=== PATIENT | male | born 1945 | race Caucasian/White ===

== ENCOUNTER 2018-05-11 09:54 | Emergency (ER) | payer MEDICARE, OTHER ==
[~2018-05-11] VITALS: Ht 190.5 cm; Wt 96.7 kg
[2018-05-11 10:10] VITALS: BP 157/71; PULSE 91; RESP 18; TEMP 98.3; O2SAT 96
[2018-05-11] MEDS ORDERED: HYDR12.57 PO (10:26)
[2018-05-11] MEDS ORDERED: METF500T PO (10:26)
[2018-05-11] MEDS ORDERED: ENAL20TA PO (10:26)
[2018-05-11] MEDS ORDERED: VITA10002 PO (10:26)
[2018-05-11] MEDS ORDERED: MILKPOW (10:26)
[2018-05-11 10:58] LABS: AUTOMATED NEUTROPHIL # 4.9 TH/MM3 (1.8-7.7); BASOPHIL % 0.4 % (0.0-2.0); EOSINOPHIL % 0.3 % (0.0-4.0); HEMATOCRIT 37.3 % (39.0-51.0); HEMOGLOBIN 12.7 GM/DL (13.0-17.0); LYMPH % 16.5 % (9.0-44.0); LYMPHOCYTE # 1.1 TH/MM3 (1.0-4.8); MEAN CELL VOLUME 101.2 FL (80.0-100.0); MEAN CORPUSCULAR HEMOGLOBIN 34.5 PG (27.0-34.0); MEAN CORPUSCULAR HGB CONC 34.1 % (32.0-36.0); MEAN PLATELET VOLUME 7.2 FL (7.0-11.0); MONO % 10.9 % (0.0-8.0); MONOCYTE # 0.7 TH/MM3 (0-0.9); NEUT % 71.9 % (16.0-70.0); PLATELET COUNT 215 TH/MM3 (150-450); RED BLOOD COUNT 3.69 MIL/MM3 (4.50-5.90); RED CELL DISTRIBUTION WIDTH 11.6 % (11.6-17.2); WHITE BLOOD COUNT 6.7 TH/MM3 (4.0-11.0)
[2018-05-11 11:28] LABS: ALBUMIN 3.6 GM/DL (3.4-5.0); ALKALINE PHOSPHATASE 39 U/L (45-117); ALT (GPT) 22 U/L (12-78); AST (GOT) 17 U/L (15-37); BICARBONATE 26.7 MEQ/L (21.0-32.0); BLOOD UREA NITROGEN 16 MG/DL (7-18); CALCIUM 8.8 MG/DL (8.5-10.1); CHLORIDE 87 MEQ/L (98-107); CREATININE 0.99 MG/DL (0.60-1.30); GLOMERULAR FILTRATION RATE 75 ML/MIN (>89); GLUCOSE,RANDOM 124 MG/DL (74-106); TOTAL BILIRUBIN ADULT 1.4 MG/DL (0.2-1.0); TROPONIN I LESS THAN 0.02 NG/ML (0.02-0.05)
--- NOTE | 2018-05-11 11:28 | PD ---
HPI Chief Complaint: Edema Time Seen by Provider: 10:26 Travel History International Travel<30 days: No Contact w/Intl Traveler<30days: No Traveled to known affect area: No History of Present Illness HPI 72-year-old male presented ER for evaluation of left leg swelling and redness that started 2 days ago, pain is rated 4 out of 10, lower leg, worse when he walks, nothing makes it better, he did not try anything [id number] for it. Patient has history of hypertension and diabetes on metformin and says that last A1c was 5.6. Patient denies any trauma to the left leg, he has no open wounds or discharge or bleeding. Patient never had this type of problem before. Denies any fever or chills or night sweats, he has no nausea or vomiting. PFSH Past Medical History Cardiovascular Problems: Yes (htn) Diabetes: Yes Patient Takes Glucophage: Yes Diminished Hearing: No Hypertension: Yes Tetanus Vaccination: Unknown Past Surgical History Abdominal Surgery: Yes (HERNIA REPAIR) Social History Alcohol Use: Yes (OCC) Tobacco Use: Yes (2 PPD) Substance Use: No Allergies-Medications (Allergen,Severity, Reaction): Coded Allergies: penicillin G (Unverified Allergy, Unknown, 05/11/18) Reported Meds & Prescriptions Reported Meds & Active Scripts Active Bactrim DS (Sulfamethoxazole-Trimethoprim) 800-160 Mg Tab 1 Tab PO BID 14 Days Reported [Milk Thistle] Vitamin B-12 (Cyanocobalamin) 1,000 Mcg Tab 1,000 Mcg PO DAILY Hydrochlorothiazide 12.5 Mg Cap 12.5 Mg PO DAILY Metformin (Metformin HCl) 500 Mg Tab 500 Mg PO BIDPC Enalapril (Enalapril Maleate) 20 Mg Tab 20 Mg PO BID Review of Systems Except as stated in HPI: all other systems reviewed are Neg Physical Exam Narrative GENERAL: Alert oriented 3 no acute distress SKIN: Focused skin assessment warm/dry. HEAD: Atraumatic. Normocephalic. EYES: Pupils equal and round. No scleral icterus. No injection or drainage. ENT: No nasal bleeding or discharge. Mucous membranes pink and moist. NECK: Trachea midline. No JVD. CARDIOVASCULAR: Regular rate and rhythm. No murmur appreciated. RESPIRATORY: No accessory muscle use. Clear to auscultation. Breath sounds equal bilaterally. GASTROINTESTINAL: Abdomen soft, non-tender, nondistended. Hepatic and splenic margins not palpable. MUSCULOSKELETAL: Erythema, nonpitting edema lower leg below the knee, warm to touch, tender, pulses intact bilaterally. No open wounds. NEUROLOGICAL: Awake and alert. No obvious cranial nerve deficits. Motor grossly within normal limits. Normal speech. PSYCHIATRIC: Appropriate mood and affect; insight and judgment normal. Data Data Last Documented VS Vital Signs Date Time Temp Pulse Resp B/P (MAP) Pulse Ox O2 Delivery O2 Flow Rate FiO2 05/11/18 13:17 93 18 161/93 (115) 96 05/11/18 12:02 Room Air 05/11/18 10:10 98.3 Orders Orders Us Leg Venous Doppler (05/11/18 ) Complete Blood Count With Diff (05/11/18 10:39) Comprehensive Metabolic Panel (05/11/18 10:39) Troponin I (05/11/18 10:39) Lactic Acid (05/11/18 10:46) Sodium Chlor 0.9% 1000 Ml Inj (Ns 1000 M (05/11/18 11:45) Sulfamet-Trimeth Ds 800-160 Mg (Bactrim (05/11/18 12:30) Ed Discharge Order (05/11/18 12:20) Labs Laboratory Tests Test 05/11/18 10:50 White Blood Count 6.7 TH/MM3 Red Blood Count 3.69 MIL/MM3 Hemoglobin 12.7 GM/DL Hematocrit 37.3 % Mean Corpuscular Volume 101.2 FL Mean Corpuscular Hemoglobin 34.5 PG Mean Corpuscular Hemoglobin Concent 34.1 % Red Cell Distribution Width 11.6 % Platelet Count 215 TH/MM3 Mean Platelet Volume 7.2 FL Neutrophils (%) (Auto) 71.9 % Lymphocytes (%) (Auto) 16.5 % Monocytes (%) (Auto) 10.9 % Eosinophils (%) (Auto) 0.3 % Basophils (%) (Auto) 0.4 % Neutrophils # (Auto) 4.9 TH/MM3 Lymphocytes # (Auto) 1.1 TH/MM3 Monocytes # (Auto) 0.7 TH/MM3 Eosinophils # (Auto) 0.0 TH/MM3 Basophils # (Auto) 0.0 TH/MM3 CBC Comment DIFF FINAL Differential Comment Blood Urea Nitrogen 16 MG/DL Creatinine 0.99 MG/DL Random Glucose 124 MG/DL Total Protein 8.0 GM/DL Albumin 3.6 GM/DL Calcium Level 8.8 MG/DL Alkaline Phosphatase 39 U/L Aspartate Amino Transf (AST/SGOT) 17 U/L Alanine Aminotransferase (ALT/SGPT) 22 U/L Total Bilirubin 1.4 MG/DL Sodium Level 123 MEQ/L Potassium Level 3.7 MEQ/L Chloride Level 87 MEQ/L Carbon Dioxide Level 26.7 MEQ/L Anion Gap 9 MEQ/L Estimat Glomerular Filtration Rate 75 ML/MIN Lactic Acid Level 1.3 mmol/L Troponin I LESS THAN 0.02 NG/ML MDM Medical Decision Making Medical Screen Exam Complete: Yes Emergency Medical Condition: Yes Differential Diagnosis Cellulitis, DVT, abscess, necrotizing fasciitis. Narrative Course 72-year-old male history of diabetes hypertension here for left leg swelling and erythema and tender to touch and warmness. Patient has negative ultrasound for DVT, labs concerning for elevated white blood count with left shift, hyponatremia of 123. Patient has no orthostatic blood pressure, no dizziness or any symptoms. Patient was given a bag of IV fluids and he feels much better. I give the patient 1 dose of Bactrim and patient says he has a good follow-up with his primary care physician so I will safely discharge the patient to follow-up with his primary care physician and will start Bactrim p.o. I also showed the patient how to john the swelling and erythema of his leg to watch for improvement and I discussed with him if there is no improvement or if any new symptoms or if the symptoms are getting worse he will have to come to the ER immediately for further evaluation. For now there is no concern for osteomyelitis or necrotizing fasciitis and patient can be discharged to follow-up with her primary. Last 24 hours Impressions Lower Extremity Ultrasound 05/11/18 0000 Signed Impressions: CONCLUSION: 1. No evidence of DVT. Laboratory Tests Test 05/11/18 10:50 White Blood Count 6.7 TH/MM3 Red Blood Count 3.69 MIL/MM3 Hemoglobin 12.7 GM/DL Hematocrit 37.3 % Mean Corpuscular Volume 101.2 FL Mean Corpuscular Hemoglobin 34.5 PG Mean Corpuscular Hemoglobin Concent 34.1 % Red Cell Distribution Width 11.6 % Platelet Count 215 TH/MM3 Mean Platelet Volume 7.2 FL Neutrophils (%) (Auto) 71.9 % Lymphocytes (%) (Auto) 16.5 % Monocytes (%) (Auto) 10.9 % Eosinophils (%) (Auto) 0.3 % Basophils (%) (Auto) 0.4 % Neutrophils # (Auto) 4.9 TH/MM3 Lymphocytes # (Auto) 1.1 TH/MM3 Monocytes # (Auto) 0.7 TH/MM3 Eosinophils # (Auto) 0.0 TH/MM3 Basophils # (Auto) 0.0 TH/MM3 CBC Comment DIFF FINAL Differential Comment Blood Urea Nitrogen 16 MG/DL Creatinine 0.99 MG/DL Random Glucose 124 MG/DL Total Protein 8.0 GM/DL Albumin 3.6 GM/DL Calcium Level 8.8 MG/DL Alkaline Phosphatase 39 U/L Aspartate Amino Transf (AST/SGOT) 17 U/L Alanine Aminotransferase (ALT/SGPT) 22 U/L Total Bilirubin 1.4 MG/DL Sodium Level 123 MEQ/L Potassium Level 3.7 MEQ/L Chloride Level 87 MEQ/L Carbon Dioxide Level 26.7 MEQ/L Anion Gap 9 MEQ/L Estimat Glomerular Filtration Rate 75 ML/MIN Lactic Acid Level 1.3 mmol/L Troponin I LESS THAN 0.02 NG/ML Diagnosis Primary Impression: Cellulitis Qualified Codes: L03.116 - Cellulitis of left lower limb Additional Instructions: Follow-up with primary care physician return to your symptoms change or do not improve. Scripts Sulfamethoxazole-Trimethoprim (Bactrim DS) 800-160 Mg Tab 1 TAB PO BID for Infection for 14 Days, #28 TAB 0 Refills Prov: Jh Bernal MD 05/11/18 Disposition: 01 DISCHARGE HOME Condition: Stable Jh Bernal MD May 11, 2018 11:28
[2018-05-11 11:31] LABS: SODIUM (NA) 123 MEQ/L (136-145)
--- NOTE | 2018-05-11 11:44 | RADRPT ---
EXAM DATE: 05/11/2018 11:26 AM EDT AGE/SEX: 72 years / Male INDICATIONS: Left leg swelling. CLINICAL DATA: This is the patient's initial encounter. Patient reports that signs and symptoms have been present for 3 days and indicates a pain score of 2/10. MEDICAL/SURGICAL HISTORY: Hypertension. Diabetes. . Herniated disc repair. Hernia repair. COMPARISON: No prior exams available for comparison. TECHNIQUE: Venous ultrasound of both lower extremities was performed from the inguinal ligament to t he proximal calf. Real-time, color Doppler and spectral tracing, compression and augmentation techni ques were used. FINDINGS: Normal compression of the deep venous system from the inguinal region to the proximal calf . No evidence of DVT. There is edema in the subcutaneous soft tissues. Prominent left inguinal lymph node measuring 4 cm. CONCLUSION: 1. No evidence of DVT. Electronically signed by: Edward Patel MD 05/11/2018 11:43 AM EDT
[2018-05-11] MEDS ORDERED: SODIUM CHLOR 0.9% 1000 ML INJ 1,000 ML IV ONE (11:45)
[2018-05-11 12:02] VITALS: BP 157/71; PULSE 65; RESP 16; O2SAT 98
[2018-05-11] MEDS ORDERED: BACT800T5 PO (12:24)
[2018-05-11] MEDS ORDERED: SULFAMETHOXAZOLE-TRIMETHOPRIM DS 800-160 MG TAB PO ONE (12:30)
[2018-05-11 13:17] VITALS: BP 161/93
== END 2018-05-11 13:42 | disposition home or self-care (01) ==
LOC: PHED 09:54
DX: L03.116 Cellulitis of left lower limb (principal); I10 Essential (primary) hypertension; E11.9 Type 2 diabetes mellitus without complications; F17.210 Nicotine dependence, cigarettes, uncomplicated; E87.1 Hypo-osmolality and hyponatremia; D72.829 Elevated white blood cell count, unspecified; Z79.84 Long term (current) use of oral hypoglycemic drugs; Z79.899 Other long term (current) drug therapy
CPT/HCPCS: 80053; 83605; 84484; 85025; 93971; 96360; 99284; J7030